=== PATIENT | male | born 1950 | race Caucasian/White ===

== ENCOUNTER → 2021-02-24 | Outpatient (CLI) | payer OTHER ==
[2014-12-31 05:17] VITALS: BP 163/74
[~2021-02-24] MED LIST: ASPI-889 PO; CLOP75TA57 PO; GLIP2.5T4 PO; LIPITOR80 MG PO; LISI2.5T PO; METF10007 PO; METO25TA4 PO; MULT-658 PO; NITR0.4T24 SL; OMEG1CAP6 PO; PRAS10TA9 PO; SITA100T PO
--- NOTE | 2021-02-24 09:32 | RAD ---
AP abdomen radiograph 02/24/2021 CLINICAL HISTORY: Microscopic hematuria. History of renal calculi. An AP supine digital radiograph of the abdomen/pelvis was obtained. Comparison study dated 12/28/2014. Air and stool are seen throughout the colon. This obscures evaluation of the renal shadows. No obviou s renal calculus is seen. No ureteral calculus is noted. The abdominal bowel gas pattern is nonobstru ctive. Calcifications are seen within the pelvis consistent with phleboliths. Mild S-shaped curvature of the thoracolumbar spine is seen. Degenerative changes are seen involving the lumbar spine. Surgic al clips overlie the right upper quadrant of the abdomen consistent with a cholecystectomy. IMPRESSION: Nonobstructive bowel gas pattern. Air and stool are seen throughout the colon which obscu res evaluation of the renal shadows. No ureteral or renal calculus is definitely seen. Electronically signed by: Elio Mathews MD (02/24/2021 9:29 AM) [id number]
== END ==
LOC: RAD 08:20
PROVIDERS: ATTEND Specialist
DX: R31.9 Hematuria, unspecified (principal); Z87.442 Personal history of urinary calculi
CPT/HCPCS: 74018

== ENCOUNTER → 2022-01-25 | Outpatient (CLI) | payer OTHER ==
[2014-12-31 05:17] VITALS: BP 163/74
[~2022-01-25] MED LIST changes: -LISI2.5T PO; +LISI2.5T12 PO
[2022-01-25 09:04] LABS: CALCIUM 8.7 mg/dL (8.5-10.1); CREATININE 2.4 mg/dL (0.7-1.3); GFR 26.7; POTASSIUM 4.6 mmol/L (3.5-5.1)
--- NOTE | 2022-01-25 10:53 | RAD ---
EXAM: CT Abdomen and Pelvis without IV contrast CLINICAL HISTORY: KIDNEY STONE, HEMATURIA COMPARISON: 10/08/2014 TECHNIQUE: Helical CT of the abdomen and pelvis without intravenous contrast. Axial, coronal and sagi ttal reformatted images were generated. PQRS compliance statement - One or more of the following individualized dose reduction techniques wer e utilized for this study: 1. Automated exposure control 2. Adjustment of the mA and/or kV according to patient size 3. Use of iterative reconstruction technique FINDINGS: Lack of intravenous contrast limits evaluation of solid organs, vasculature, and lymph nodes. Lower chest: Coronary calcifications. No pericardial effusion. Lung bases are clear. Abdomen and Pelvis: Spleen, adrenal glands and pancreas are unremarkable. Subcentimeter hypodense hepatic dome lesion is too small to characterize. Left interpolar renal cystic lesion is seen. Left lower pole renal cystic lesion is seen. No hydronep hrosis. No hydroureter. Bilateral thickening. There is mild infiltration about the ureters. Appendix is normal. Moderate colonic stool content is seen. No small or large bowel dilatation. No jhoan wel obstruction. Uterus and adnexa are unremarkable. No abdominal or pelvic lymphadenopathy. No abdominal or pelvic ascites. Aorta is normal in caliber with atherosclerotic calcifications. Fat-containing right inguinal lesion. Bones: No aggressive osseous lesion is seen. Leftward curvature lower thoracic spine. IMPRESSION: 1. No renal tract calculus. 2. Mild infiltration about the ureters with mild bladder wall thickening may be seen with cystitis a nd ascending infection can be correlated with urinalysis.. 3. Left renal cystic lesions are seen. 4. Trace fat-containing periumbilical hernia is seen. Electronically signed by: Mika Man MD (01/25/2022 10:50 AM) [id number]
== END ==
LOC: CT 08:08
PROVIDERS: ATTEND Specialist
DX: K42.9 Umbilical hernia without obstruction or gangrene (principal); N32.89 Other specified disorders of bladder; N28.89 Other specified disorders of kidney and ureter; K76.89 Other specified diseases of liver; R31.0 Gross hematuria
CPT/HCPCS: 36415; 74176; 80048